=== PATIENT | female | born 1945 | race Caucasian/White ===

== ENCOUNTER 2021-09-16 07:15 | Outpatient (REF) | payer MEDICARE, OTHER, SELFPAY ==
[2021-09-16 11:40] LABS: MANUAL DIFF FLAG NO
[2021-09-16 11:46] LABS: Basophils Absolute Auto 0.1 X10*3/uL (0.0-0.2); Eosinophils Absolute Auto 0.9 X10*3/uL (0.0-0.4); Hematocrit 43.6 % (37.0-47.0); Imm Gran Abs Auto 0.02 X10*3/uL (0.00-0.03); Imm Gran Pct Auto 0.3 % (0.0-0.4); Lymphocytes Absolute Auto 2.3 X10*3/uL (1.2-4.9); Lymphocytes Percent Auto 34.7 % (20-40); Mean Corpuscular HGB Conc 32.1 g/dl (31.0-35.0); Mean Corpuscular Volume 93.4 fL (80.0-98.0); Mean Platelet Volume 10.4 fL (9.4-12.3); Monocytes Absolute Auto 0.4 X10*3/uL (0.1-1.2); Monocytes Percent Auto 6.4 % (2-11); Neutrophils Percent Auto 44.6 % (45-73); Platelet Count 314 X10*3/uL (160-400); Red Blood Count 4.67 X10*6/uL (4.20-5.50); Red Cell Distribution Width 12.9 % (11.0-16.0); White Blood Count 6.7 X10*3/uL (4.8-10.8)
[2021-09-16 12:10] LABS: Alanine Aminotransferase 18 U/L (0-31); Albumin Level 4.2 g/dL (3.5-5.0); Alkaline Phosphatase 50 U/L (39-117); Anion Gap 11 (12-20); Aspartate Amino Transferase 21 U/L (5-31); Bilirubin Total 0.5 mg/dL (0.0-1.0); Blood Urea Nitrogen 16 mg/dL (9-16); Calcium 9.9 mg/dL (8.4-10.2); Carbon Dioxide 28 mmol/L (22-29); Chloride 105 mmol/L (96-108); Cholesterol 214 mg/dL; Estimated Glomerular Filt Rate > 60; Glucose Fasting 96 mg/dL (60-99); HDL Cholesterol 75 mg/dL; LDL Cholesterol Calculated 118 mg/dl; Potassium 4.4 mmol/L (3.3-5.1); Sodium 140 mmol/L (135-145); Total Protein 6.8 g/dL (6.5-8.0); Triglycerides 107 mg/dL
[2021-09-16 12:35] LABS: Thyroid Stimulating Hormone 6.54 uIU/mL (0.32-4.0); Vitamin D 25-OH Total 35.8 ng/mL (>30)
== END 2021-09-16 07:16 | disposition home or self-care (01) ==
LOC: HO.HMGCLDS 07:15
PROVIDERS: Absent Provider Psychiatry & Neurology Neurology; PCP Internal Medicine; Visit Provider Internal Medicine
DX: R41.0 Disorientation, unspecified (principal); E78.00 Pure hypercholesterolemia, unspecified
CPT/HCPCS: 36415; 80053; 80061; 82306; 84443; 85025

== ENCOUNTER 2021-10-01 15:47 | Outpatient (REF) | payer MEDICARE, OTHER, SELFPAY ==
--- NOTE | ~2021-10-01 | CT_ITS ---
EXAMINATION: CT HEAD WITHOUT CONTRAST CLINICAL INFORMATION: Transient global amnesia. COMPARISON: None TECHNIQUE: Contiguous axial imaging was performed from the skull base to vertex without intravenous administration of contrast. This CT examination was performed using dose optimization techniques as appropriate, variously including the following: *Automated exposure control *Adjustment of mA and/or kV according to patient size (this includes techniques or standardized protocols for targeted exams where dose is matched to indication/reason for exam; i.e. extremities or head) *Use of iterative reconstruction technique DLP: 727 mGy-cm FINDINGS: There is no evidence of acute intracranial hemorrhage or territorial infarction. No abnormal mass effect or midline shift is seen. Caicedo to white matter differentiation is well preserved. No extra-axial fluid collections are identified. The ventricles are normal in size. There is no abnormal attenuation within the brain parenchyma. The osseous structures and soft tissues are normal. The mastoid air cells and visualized portions of the paranasal sinuses are well aerated. CT/CT head/brain wo con IMPRESSION: No acute intracranial process seen.
== END 2021-10-01 15:48 | disposition home or self-care (01) ==
LOC: HO.CT 15:47
PROVIDERS: Visit Provider Psychiatry & Neurology Neurology
DX: G45.4 Transient global amnesia (principal)
CPT/HCPCS: 70450

== ENCOUNTER 2022-01-07 16:23 | Outpatient (REF) | payer MEDICARE, OTHER, SELFPAY ==
--- NOTE | ~2022-01-07 | MM_ITS ---
EXAMINATION: MM SCREENING DIGITAL BREAST TOMOSYNTHESIS, BILATERAL CLINICAL INFORMATION: Screening. Asymptomatic. The lifetime risk of breast cancer based on the Tyrer-Cuzick Model is 4%. COMPARISON: Outside mammography: 01/01/2021, 12/31/2019, 12/25/2018 ([place]) TECHNIQUE: Digital breast tomosynthesis is performed in both the craniocaudal and mediolateral oblique views along with computer-aided detection (CAD). Synthesized 2D images are generated from the tomosynthesis. FINDINGS: The breasts are almost entirely fatty (ACR BI-RADS breast composition Category a). Background stromal markings are similar to prior outside exams. There is no developing density or architectural abnormality. There are no significant masses, abnormal calcifications, or other abnormalities. The axilla are unremarkable. No significant changes. MM/MM tomosynthesis screening BI IMPRESSION: No mammographic evidence of malignancy. ASSESSMENT: BI-RADS 1: Negative RECOMMENDATION: Routine annual mammography screening. This patient's information was entered into a reminder system with a target due date for their next mammogram.
== END 2022-01-07 16:24 | disposition home or self-care (01) ==
LOC: HO.MAMMO 16:23
PROVIDERS: Visit Provider Internal Medicine
DX: Z12.31 Encounter for screening mammogram for malignant neoplasm of breast (principal)
CPT/HCPCS: 77063; 77067

== ENCOUNTER 2022-11-11 07:11 | Outpatient (REF) | payer MEDICARE, OTHER, SELFPAY | END 2022-11-11 07:12 | disposition home or self-care (01) | LOC: HO.LAB 07:11 | PROVIDERS: PCP Internal Medicine; Visit Provider Internal Medicine | DX: E78.00 Pure hypercholesterolemia, unspecified (principal); E03.8 Other specified hypothyroidism | CPT/HCPCS: 36415; 80053; 80061; 84443; 85025 ==

== ENCOUNTER 2023-01-11 10:36 | Outpatient (REF) | payer MEDICARE, OTHER, SELFPAY ==
--- NOTE | ~2023-01-11 | MM_ITS ---
EXAMINATION: MM SCREENING DIGITAL BREAST TOMOSYNTHESIS, BILATERAL CLINICAL INFORMATION: Screening. Asymptomatic. COMPARISON: Mammography: 01/07/2022, 01/01/2021, 12/31/2019, 12/25/2018 ([place]) TECHNIQUE: Digital breast tomosynthesis is performed in both the craniocaudal and mediolateral oblique views along with computer-aided detection (CAD). Synthesized 2D images are generated from the tomosynthesis. FINDINGS: The breasts are almost entirely fatty (ACR BI-RADS breast composition Category a). There are no suspicious masses, suspicious grouped calcifications, or areas of architectural distortion. The parenchymal pattern is stable from prior exams. MM/MM tomosynthesis screening BI IMPRESSION: No mammographic evidence of malignancy. ASSESSMENT: BI-RADS BI-RADS 1 - Negative RECOMMENDATION: Routine annual mammography screening. 1 year F/U This examination should not preclude the clinical evaluation of a suspicious palpable abnormality. This patient's information was entered into a reminder system with a target due date for their next mammogram.
[2023-01-11 14:13] LABS: Blood Urea Nitrogen 31 mg/dL (9-16); Estimated Glomerular Filt Rate > 60
== END 2023-01-11 10:37 | disposition home or self-care (01) ==
LOC: HO.MAMMO 10:36
PROVIDERS: PCP Internal Medicine; Visit Provider Internal Medicine
DX: Z12.31 Encounter for screening mammogram for malignant neoplasm of breast (principal); N28.89 Other specified disorders of kidney and ureter; K86.2 Cyst of pancreas
CPT/HCPCS: 36415; 77063; 77067; 82565; 84520

== ENCOUNTER → 2023-01-11 11:30 | Outpatient (BNV) | payer MEDICARE, OTHER, SELFPAY | PROVIDERS: PCP Internal Medicine; Visit Provider Radiology Diagnostic Radiology | DX: Z12.31 Encounter for screening mammogram for malignant neoplasm of breast (principal) | CPT/HCPCS: 77063; 77067 ==

== ENCOUNTER 2023-02-22 11:17 | Outpatient (REF) | payer MEDICARE, OTHER, SELFPAY ==
--- NOTE | ~2023-02-22 | MR_ITS ---
EXAMINATION: MR ABDOMEN WITHOUT AND WITH CONTRAST CLINICAL INFORMATION: Pancreatic cyst. Left renal mass. COMPARISON: Outside prior imaging dated 05/24/2018 and 05/17/2018 TECHNIQUE: MR abdomen was performed without and with use of 6.5 mL intravenous Gadavist gadolinium contrast. Postcontrast images are performed in multiphase dynamic sequences. Imaging was performed in 3 planes. MRCP was also performed. FINDINGS: LUNG BASES: The visualized lung bases are unremarkable. LIVER, GALLBLADDER, AND BILIARY TREE: The liver is normal in contour. Mild hepatic steatosis. No focal hepatic lesion or biliary ductal dilatation is present. The gallbladder is unremarkable with no evidence of gallbladder wall thickening, or obvious pericholecystic inflammatory changes. PANCREAS: No ductal dilatation. Few cystic lesions in the head and body of the pancreas are best seen on the MRCP images. The lesions measure between 4 mm and 6 mm and communicate with the main pancreatic duct. No postcontrast enhancement. No change relative to the comparison study performed 05/24/2018. SPLEEN: Not enlarged. ADRENAL GLANDS: 1.1 cm left adrenal adenoma. KIDNEYS AND URETERS: The kidneys are symmetric in size and enhancement. 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 No hydronephrosis. No perinephric stranding. GASTROINTESTINAL TRACT: No bowel obstruction. No ascites or fluid collection. ABDOMINAL WALL: No significant hernia is appreciated. LYMPH NODES: No bulky abdominal lymphadenopathy. VASCULAR: Normal caliber abdominal aorta. MR/MR abdomen wo/w con IMPRESSION: Stable examination. No significant interval change in appearance of pancreatic cystic lesions nor left renal angiomyolipoma. 1.1 cm left adrenal adenoma. Follow-up as clinically indicated.
[2023-02-22] MEDS: gadobutroL 7.5 ML VIAL IVPUSH (12:28)
== END 2023-02-22 11:18 | disposition home or self-care (01) ==
LOC: HO.MRI 11:17
PROVIDERS: PCP Internal Medicine; Visit Provider Internal Medicine
DX: K86.2 Cyst of pancreas (principal); N28.89 Other specified disorders of kidney and ureter
CPT/HCPCS: 74183; A9585

== ENCOUNTER 2023-11-21 09:19 | Outpatient (REF) | payer MEDICARE, OTHER, SELFPAY ==
[2023-11-21 09:39] LABS: MANUAL DIFF FLAG NO
[2023-11-21 10:37] LABS: Basophils Absolute Auto 0.1 X10*3/uL (0.0-0.2); Basophils Percent Auto 1.3 % (0-2); Eosinophils Absolute Auto 0.4 X10*3/uL (0.0-0.4); Eosinophils Percent Auto 5.8 % (0-4); Hematocrit 41.1 % (37.0-47.0); Hemoglobin 13.4 g/dl (12.0-16.0); Imm Gran Abs Auto 0.02 X10*3/uL (0.00-0.03); Imm Gran Pct Auto 0.3 % (0.0-0.4); Lymphocytes Percent Auto 32.1 % (20-40); Mean Corpuscular HGB Conc 32.6 g/dl (31.0-35.0); Mean Corpuscular Hemoglobin 30.6 pg (27.0-33.0); Mean Corpuscular Volume 93.8 fL (80.0-98.0); Mean Platelet Volume 9.8 fL (9.4-12.3); Monocytes Absolute Auto 0.4 X10*3/uL (0.1-1.2); Monocytes Percent Auto 6.5 % (2-11); Neutrophils Absolute Auto 3.4 x10*3/uL (2.0-8.3); Platelet Count 309 X10*3/uL (160-400); Red Blood Count 4.38 X10*6/uL (4.20-5.50); Red Cell Distribution Width 13.2 % (11.0-16.0); White Blood Count 6.4 X10*3/uL (4.8-10.8)
[2023-11-21 11:06] LABS: Alanine Aminotransferase 14 U/L (0-31); Albumin Level 4.1 g/dL (3.5-5.0); Alkaline Phosphatase 45 U/L (39-117); Anion Gap 14 (12-20); Aspartate Amino Transferase 19 U/L (5-31); Bilirubin Total 0.5 mg/dL (0.0-1.0); Blood Urea Nitrogen 19 mg/dL (9-16); Calcium 9.6 mg/dL (8.4-10.2); Carbon Dioxide 27 mmol/L (22-29); Chloride 106 mmol/L (96-108); Cholesterol 189 mg/dL (<200); Estimated Glomerular Filt Rate > 60; Glucose Fasting 90 mg/dL (60-99); HDL Cholesterol 69 mg/dL (>40); LDL Cholesterol Calculated 103 mg/dL (<100); Potassium 4.9 mmol/L (3.3-5.1); Sodium 142 mmol/L (135-145); Total Protein 6.6 g/dL (6.5-8.0); Triglycerides 86 mg/dL (<150)
[2023-11-21 11:20] LABS: Thyroid Stimulating Hormone 3.08 uIU/mL (0.32-4.0)
== END 2023-11-21 09:20 | disposition home or self-care (01) ==
LOC: HO.LAB 09:19
PROVIDERS: PCP Internal Medicine; Visit Provider Internal Medicine
DX: E78.00 Pure hypercholesterolemia, unspecified (principal); E03.8 Other specified hypothyroidism
CPT/HCPCS: 36415; 80053; 80061; 84443; 85025

== ENCOUNTER 2024-01-18 10:02 | Outpatient (REF) | payer MEDICARE, OTHER, SELFPAY ==
--- NOTE | ~2024-01-18 | MM_ITS ---
EXAMINATION: MM SCREENING DIGITAL BREAST TOMOSYNTHESIS, BILATERAL CLINICAL INFORMATION: Screening. Asymptomatic. COMPARISON: Mammography: Comparison is made with available priors TECHNIQUE: Digital breast mammography with tomosynthesis is performed in both the craniocaudal and mediolateral oblique views along with computer-aided detection (CAD). FINDINGS: There are scattered areas of fibroglandular density (ACR BI-RADS breast composition Category b). There are no significant masses, abnormal calcifications, or other abnormalities. MM/MM tomosynthesis screening BI IMPRESSION: No mammographic evidence of malignancy. ASSESSMENT: BI-RADS BI-RADS 1 - Negative RECOMMENDATION: Routine annual mammography screening. 1 year F/U This examination should not preclude the clinical evaluation of a suspicious palpable abnormality. This patient's information was entered into a reminder system with a target due date for their next mammogram. Electronically signed by: Corinne Bazan DO 02/01/2024 09:40 AM EDT
== END 2024-01-18 10:03 | disposition home or self-care (01) ==
LOC: HO.MAMMO 10:02
PROVIDERS: PCP Internal Medicine; Visit Provider Internal Medicine
DX: Z12.31 Encounter for screening mammogram for malignant neoplasm of breast (principal)
CPT/HCPCS: 77063; 77067

== ENCOUNTER → 2024-01-18 10:15 | Outpatient (BNV) | payer MEDICARE, OTHER, SELFPAY | PROVIDERS: PCP Internal Medicine; Visit Provider Internal Medicine | DX: Z12.31 Encounter for screening mammogram for malignant neoplasm of breast (principal) | CPT/HCPCS: 77063; 77067 ==

== ENCOUNTER 2024-11-22 08:53 | Outpatient (REF) | payer MEDICARE, OTHER, SELFPAY ==
--- OUTSIDE RECORDS SUMMARY | 2024-11-22 09:11 | XMS_ITS | Clinical Summary ---
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
[2024-11-22 13:19] LABS: Hematocrit 40.8 % (37.0-47.0); Hemoglobin 13.4 g/dl (12.0-16.0); Mean Corpuscular HGB Conc 32.8 g/dl (31.0-35.0); Mean Corpuscular Hemoglobin 30.6 pg (27.0-33.0); Mean Corpuscular Volume 93.2 fL (80.0-98.0); NRBC Abs Auto 0.000 X10*3/uL (0.0-0.012); NRBC Pct Auto 0.0 /100WBC (0.0-0.2); Platelet Count 294 X10*3/uL (160-400); Red Blood Count 4.38 X10*6/uL (4.20-5.50); White Blood Count 5.6 X10*3/uL (4.8-10.8)
[2024-11-22 13:31] LABS: Hemoglobin A1C 136.5152 umol/L; Total Hemoglobin (HGBA1C) 3466.8243 umol/L
[2024-11-22 13:38] LABS: Alanine Aminotransferase 18 U/L (0-31); Albumin Level 4.1 g/dL (3.5-5.0); Alkaline Phosphatase 54 U/L (39-117); Anion Gap 11 (12-20); Aspartate Amino Transferase 29 U/L (5-31); Blood Urea Nitrogen 14 mg/dL (9-16); Calcium 9.0 mg/dL (8.4-10.2); Carbon Dioxide 28 mmol/L (22-29); Chloride 106 mmol/L (96-108); Cholesterol 167 mg/dL (<200); Estimated Glomerular Filt Rate > 60; HDL Cholesterol 63 mg/dL (>40); Potassium 4.3 mmol/L (3.3-5.1); Sodium 141 mmol/L (135-145); Total Protein 6.4 g/dL (6.5-8.0); Triglycerides 97 mg/dL (<150)
[2024-11-22 13:55] LABS: Thyroid Stimulating Hormone 3.11 uIU/mL (0.32-4.0)
[2024-11-22 13:59] LABS: Appearance Urine Clear; Glucose Urine UA Negative (Negative); PH 8.0 (5.0-9.0); Specific Gravity - Urine <= 1.005 (1.005-1.025); UMIC TRIGGER UA YES
== END 2024-11-22 08:54 | disposition home or self-care (01) ==
LOC: HO.HMGCLDS 08:53
PROVIDERS: PCP Internal Medicine; Visit Provider Internal Medicine
DX: E78.5 Hyperlipidemia, unspecified (principal); Z13.1 Encounter for screening for diabetes mellitus
CPT/HCPCS: 36415; 80048; 80061; 80076; 81001; 81003; 83036; 84443; 85027

== ENCOUNTER 2024-11-27 09:52 | Outpatient (AMB) | payer MEDICARE, OTHER, SELFPAY ==
--- NOTE | 2024-11-27 09:53 | A.OFFPC_ITS ---
Vital Signs 11/27/24 09:58 Height 5 ft 2.6 in Weight 138 lb BMI 24.8 BP 144/65 H Respiration 14 Pulse 70 Pulse Source Pulse Oximeter Temp 98.2 F Temp Source Temporal Artery Scan Pulse Oximetry (%) 98 Oxygen Delivery Method Room Air Intake Visit Reasons: Cholesterol Front Office Spec Required: No Accompanied by: Self / Same As Patient Allergies No Known Allergies Allergy (Verified 11/27/24 09:54) Tobacco use date assessed: 11/27/24 Fall risk assessment: No Falls in past year Last assessed Fall Risk: 11/27/24 Dental Screening Dental Screen Date: 11/27/24 Did you have a dental visit in the last 12 months?: Yes Did you have a dental problem in the last 6 months where you did not have access to dental care?: No Was dental information given to patient?: Patient has dentist [facility] Medical History (Updated 11/27/24 @ 10:16 by Keegan De La Garza MD) Xerostomia Hyperlipidemia Family History Mother Dementia BP (high blood pressure) Father Leukemia Bladder cancer Social History Housing: House Alcohol intake: current Alcohol intake frequency: a few times a week Patient Tobacco Use Status: Former Tobacco user service: No Current occupational status: retired Cognitive needs: No Hearing needs: No Vision needs: Yes (rx glasses) Questionnaire PHQ-9 Over the last 2 weeks, how often have you been bothered by any of the following problems? 1. Little interest or pleasure in doing things: not at all 2. Feeling down, depressed, or hopeless: not at all 3. Trouble falling or staying asleep, or sleeping too much: not at all 4. Feeling tired or having little energy: not at all 5. Poor appetite or overeating: not at all 6. Feeling bad about yourself - or that you are a failure or have let yourself or your family down: not at all 7. Trouble concentrating on things, such as reading the newspaper or watching television: not at all 8. Moving or speaking so slowly that other people could have noticed. Or the opposite - being so fidgety or restless that you have been moving around a lot more than usual: not at all 9. Thoughts that you would be better off or of hurting yourself in some way: not at all Total score: 0 Depression Screening Interpretation: Negative Depression Screening Done: Yes Source: Developed by Drs. Jan Cesar, Eliana Clark, Diony Cunningham and colleagues, with an educational taj from [employer]. Thrive Questionnaire Date Thrive assessed: 11/27/24 I am a: Patient What is your living situation today?: I have a steady place to live Within the past 12 months, did the food you bought not last and you didn't have the money to get more?: Never true Within the past 12 months, did you worry whether your food would run out before you got money to buy more?: Never true Do you have trouble paying for medicines?: No Do you have trouble getting transportation to medical appointments?: No Do you have trouble paying your heating and electricity bill?: No Do you have trouble taking care of your child, family member or friend?: No Do you have trouble with day-to-day activities such as bathing, preparing meals, shopping, managing finances, etc.?: No Are you currently unemployed and looking for a job?: No Are you interested in more education?: No Please select the resources that you would like help with: None THRIVE Score: 0 AUDIT C Alcohol Use Questionnaire (AUDIT-C) 1. How often do you have a drink containing alcohol?: 2-3 times a week 2. How many drinks containing alcohol do you have on a typical day when you are drinking?: 1 or 2 3. How often do you have six or more drinks on one occasion?: Never Total Score: 3 JYOTI-7 AMB Questionnaire JYOTI-7 Date JYOTI - 7 assessed: 11/27/24 Feeling nervous, anxious, or on edge: 0 = Not at all Not being able to stop or control worryin = Not at all Worrying too much about different things: 0 = Not at all Trouble relaxin = Not at all Being so restless that it is hard to sit still: 0 = Not at all Becoming easily annoyed or irritable: 0 = Not at all Feeling afraid as if something awful might happen: 0 = Not at all Total JYOTI-7 score (0-4 normal; 5-9 mild; 10-14 moderate; 15-21 severe): 0 Source: Developed by Drs. Jan Cesar, Eliana Clark, Diony Cunningham and colleagues, with an educational taj from [employer]. Physical exam (Primary Care) Vital Signs: Last Vital Signs Temp 98.2 F 11/27/24 09:58 Pulse 70 11/27/24 09:58 Resp 14 11/27/24 09:58 BP 144/65 H 11/27/24 09:58 Pulse Ox 98 11/27/24 09:58 Oxygen Delivery Method Room Air 11/27/24 09:58 Care Plan Goal for BP management: BP in range BMI result Body Mass Index 24.8 Tobacco/Smoking Status: Tobacco use Status Tobacco use date assessed 11/27/24 11/27/24 09:56 Patient Tobacco Use Status Former Tobacco user 11/27/24 10:02 PHQ-9: PHQ-9 Score PHQ-9: Total score 0 11/27/24 09:56 Depression Screening Interpretation: Negative Thrive Assessment: Date of Thrive Assessment Date Thrive assessed 11/27/24 11/27/24 09:56 Coding Level of Care Code New Pt Level 4 (90020) Complex EM visit Add On G2211 Diagnoses Hyperlipidemia E78.5 Xerostomia K11.7 Assessment & Plan Assessment & Plan (1) Hyperlipidemia: Code(s): E78.5 - Hyperlipidemia, unspecified Category: Medical Plan: History of Present Illness - The patient is an 79-year-old female presenting with symptoms of dry eye and dry mouth. - Dry eye syndrome has been present for 30 years, managed with artificial tears. - Xerostomia has recently developed, possibly due to sleeping with an open mouth because of shoulder pain. - Suspected Sj?gren's syndrome was discussed, but no formal diagnosis has been made. - Neuropathy is suspected, but the patient is not interested in pursuing medication for it. - The patient maintains an active lifestyle, participating in Erin, line dancing, and water aerobics. 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 - The patient is currently on lovastatin, with labs from November showing no issues. Social History - The patient lives alone and is independent in daily activities. - She maintains an active lifestyle, engaging in Erin, line dancing, and water aerobics regularly. - Formerly employed as the chief clinical birdcage assembler at a [employer]. Review of Systems - Ophthalmologic: Reports chronic dry eyes for 30 years. - Oral: Reports recent onset of dry mouth. - Musculoskeletal: Reports shoulder pain, prefers not to seek treatment. - Neurological: Suspects neuropathy, denies interest in treatment. - General: Denies confusion or difficulty with daily activities. Physical Exam General: Cooperative and healthy appearing Nutritional Appearance: Well nourished Orientation/consciousness: Patient oriented x3 Limitations: No limitations Head: Normal to inspection General: Appearance normal, both eyes and all related structures Neck: Normal visual inspection Chest: Normal palpation of entire chest wall Respiratory: N ormal respiratory effort Neurology: Patient oriented x3, no confusion, able to walk, exercises regularly (Erin twice a week, line dance three hours a week, water aerobics), assumes neuropathy but not interested in medication. Results - Labs: November lab results were normal, no issues noted. Plan 1. Dry Eye Syndrome - Continue using artificial tears for symptomatic relief. 2. Xerostomia - Continue using oral gel for moisture. 3. Suspected Sj?gren's Syndrome - Monitor symptoms; no formal diagnosis or treatment initiated. 4. Neuropathy - No treatment pursued as per patient's preference. 5. Shoulder Pain - No intervention desired by the patient at this time. 6. Preventative Care: Lovastatin Prescription Renewal - Prescription for lovastatin renewed for six months. Discussion Notes During the visit, we discussed the management of dry eye syndrome and xerostomia, emphasizing symptomatic relief through artificial tears and oral gel. We also considered the possibility of Sj?gren's syndrome, but no formal diagnosis was made. The patient prefers not to pursue treatment for neuropathy and shoulder pain at this time. A prescription for lovastatin was renewed for six months. Patient Instructions - Continue using artificial tears for dry eyes. - Use oral gel to manage dry mouth symptoms. - Monitor symptoms of dry mouth and eyes, and report any changes. - Follow up in six months for prescription renewal. (2) Xerostomia: Code(s): K11.7 - Disturbances of salivary secretion Category: Medical Plan: Use OTC Medications: New lovastatin 10 mg PO DAILY 90 tabs 1RF
[2024-11-27 09:58] VITALS: BP 144/65; PULSE 70; RESP 14; TEMP 36.8; O2SAT 98; BMI 24.8
--- OUTSIDE RECORDS SUMMARY | 2024-11-27 10:40 | XMS_ITS | Clinical Summary ---
Author Organization [facility] Health Address [address] [place] [address] Care Team Providers Care Metal Dealer Name Role Phone Unavailable Primary Care Provider [...]
== END 2024-11-27 10:15 | disposition home or self-care (01) ==
LOC: HO.HMCSH 09:52
PROVIDERS: PCP Internal Medicine; Visit Provider Internal Medicine
DX: E78.5 Hyperlipidemia, unspecified (principal); K11.7 Disturbances of salivary secretion

== ENCOUNTER → 2024-11-27 09:52 | Outpatient (BNVA) | payer MEDICARE, OTHER, SELFPAY | PROVIDERS: PCP Internal Medicine; Visit Provider Internal Medicine | DX: E78.5 Hyperlipidemia, unspecified (principal); K11.7 Disturbances of salivary secretion | CPT/HCPCS: 99202 ==

== ENCOUNTER 2025-02-22 11:19 | Outpatient (REF) | payer MEDICARE, OTHER, SELFPAY ==
--- OUTSIDE RECORDS SUMMARY | 2025-02-14 11:30 | XMS_ITS | Encounter Summary ---
Author Organization [employer] Address [address] [facility] [facility] [address] [facility] [address] [place] [address] Care Team Providers Care Content Coordinator Name Role Phone Unavailable Primary Care Provider Unavailabl e Encounter Details Date Type Department Care Team (Late st Contact Info) Description 02/14/2025 11:30 AM EDT Immunization [facility] [address] [place] [address] Patsy Epstein RN Encounter for vaccination; Encounter for immunization Social History Tobacco Use Types Packs/Day Years Used Date Smoking Tobacco: Never Assessed Comments Unknown Sex and Gender Information Value Date Recorded Sex Assigned at Female 02/14/2025 3:13 PM EDT Legal Sex Female 3:11 PM EDT Gender Identity Female 02/14/2025 3:13 PM EDT Sexual Orientation Straight 02/14/2025 3: 13 PM EDT documented as of this encounter Progress Notes * Patsy Epstein RN - 02/14/2025 11:30 AM EDT Subjective Patient ID: Argentina Tolbert is a 79 y.o. female who presents for COVID19 and Flu Vaccine. Pt here for COVID19 and Flu Vaccine. Per record and patient reporting indicate that patient has no allergies that contraindicate today's vaccinations. Vaccine administered in [facility]. Pt tolerated well, pt willstay for observation for 15minutes post vaccination for observation by nurse. documented in this encounter Plan of Treatment Not on file documented as of this encounter Visit Diagnoses Diagnosis Encounter for vaccination Encounter for immunization documented in this encounter
--- NOTE | ~2025-02-22 | MM_ITS ---
EXAMINATION: MM SCREENING DIGITAL BREAST TOMOSYNTHESIS, BILATERAL CLINICAL INFORMATION: Screening. Asymptomatic. COMPARISON: Mammography: Comparison is made with available priors TECHNIQUE: Digital breast mammography with tomosynthesis is performed in both the craniocaudal and mediolateral oblique views along with computer-aided detection (CAD). FINDINGS: There are scattered areas of fibroglandular density. There are no significant masses, abnormal calcifications, or other abnormalities. MM/MM tomosynthesis screening BI IMPRESSION: No mammographic evidence of malignancy. ASSESSMENT: BI-RADS Category 1: Negative RECOMMENDATION: Routine annual mammography screening. 1 year F/U This examination should not preclude the clinical evaluation of a suspicious palpable abnormality. This patient's information was entered into a reminder system with a target due date for their next mammogram. Electronically signed by: Corinne Bazan DO 02/25/2025 05:28 PM EDT
--- OUTSIDE RECORDS SUMMARY | 2025-02-22 14:08 | XMS_ITS | Clinical Summary ---
Author Organization [employer] Address [address] [address] [place] [address] Care Team Providers Care Photo Mask Pattern Generator Name Role Phone Unavailable Primary Care Provider Unavailabl e Encounters Date Type Department Care Team Description 02/14/2025 11:30 AM EDT Immunization [facility] [address] [place] [address] Patsy Epstein RN Encounter for vaccination; Encounter for immunization from Last 3 Months Immunizations Immunization Administration Dates Next Due Influenza, High Dose Seasonal, Preservative Free 02/14/2025 Pfizer Covid-19 Vaccine 12+ 02/14/2025 Social History Tobacco Use Types Packs/Day Years Used Date Smoking Tobacco: Never Assessed Comments Unknown Sex and Gender Information Value Date Recorded Sex Assigned at Female 02/14/2025 3:13 PM EDT Legal Sex Female 3:11 PM EDT Gender Identity Female 02/14/2025 3:13 PM EDT Sexual Orientation Straight 02/14/2025 3: 13 PM EDT Plan of Treatment Health Maintenance Due Date Last Done Comments Depression Screening 1945 SDOH Screening 1945 Alcohol/Substance Use Screening 1955 Tobacco Screening 1955 DTaP/Tdap/Td Vaccines (1 - Tdap) 1962 Pneumococcal Vaccine: 50+ Ye ars (1 of 1 - PCV) 1993 Zoster Vaccines (1 of 2) 1993 RSV Patients and Pa tients Aged 60 years or older (1 - 1-dose 75+ series) 2018 COVID-19 Vaccine (2 - 2023-2 5 season) 2025 02/14/2025 Influenza Vaccine Completed 02/14/2025 HIB Vaccines Aged Out No longer eligi ble based on patient's age to complete this topic HPV Vaccines Aged Out No longer eligi ble based on patient's age to complete this topic Hepatitis A Vaccines Aged Out No long er eligible based on patient's age to complete this topic Hepatitis B Vaccines Aged Out No long er eligible based on patient's age to complete this topic IPV Vaccines Aged Out No longer eligi ble based on patient's age to complete this topic Meningococcal B Vaccine Aged Out No l onger eligible based on patient's age to complete this topic Meningococcal Vaccine Aged Out No kajal sobia eligible based on patient's age to complete this topic RSV under 20 months Aged Out No longe r eligible based on patient's age to complete this topic Rotavirus Vaccines Aged Out No longer eligible based on patient's age to complete this topic Insurance MEDICARE
== END 2025-02-22 11:20 | disposition home or self-care (01) ==
LOC: HO.MAMMO 11:19
PROVIDERS: PCP Internal Medicine; Visit Provider Internal Medicine
DX: Z12.31 Encounter for screening mammogram for malignant neoplasm of breast (principal)
CPT/HCPCS: 77063; 77067

== ENCOUNTER → 2025-02-22 11:45 | Outpatient (BNV) | payer MEDICARE, OTHER, SELFPAY | PROVIDERS: PCP Internal Medicine; Visit Provider Internal Medicine | DX: Z12.31 Encounter for screening mammogram for malignant neoplasm of breast (principal) | CPT/HCPCS: 77063; 77067 ==